=== PATIENT | female | born 1945 | race Hispanic/Latino ===

== ENCOUNTER 2018-01-15 00:08 | Inpatient (IN) | payer MEDICARE ==
[2018-01-15] VITALS (7 sets, daily range): BP systolic 99–143; BP diastolic 65–71
[~2018-01-15] VITALS: Ht 188 cm; Wt 97.5 kg
[2018-01-15] MEDS ORDERED: DIGOXIN INJ 0.25 MG/ML 2 ML AMP ONE (01:13)
[2018-01-15] MEDS ORDERED: POTASSIUM CHLO10 ME1 PO ×2 (01:20→03:09)
[2018-01-15] MEDS ORDERED: FUROSEMIDE40 MG PO ×2 (01:20→03:09)
[2018-01-15] MEDS ORDERED: OMEPRAZOLE20 MG PO ×2 (01:20→03:09)
[2018-01-15] MEDS ORDERED: LOSARTAN POTAS100 MG PO ×2 (01:20→03:09)
[2018-01-15] MEDS ORDERED: METOPROLOL SUCC25 MG PO ×2 (01:20→03:09)
[2018-01-15] MEDS ORDERED: ELIQUIS PO ×2 (01:20→03:09)
[2018-01-15] MEDS ORDERED: PRAVASTATIN SOD40 MG PO ×2 (01:20→03:09)
[2018-01-15] MEDS ORDERED: GLIPIZIDE-METF1 EAC2 PO ×2 (01:20→03:09)
[2018-01-15 01:30] LABS: BASOPHILS % 0.1 % (0.0-1.0); EOSINOPHILS # (AUTO) 0.1 (0.0-0.4); EOSINOPHILS % 1.5 % (0.0-6.0); HEMATOCRIT 33.9 % (34.2-44.1); LYMPHOCYTES # (AUTO) 1.7 (1.0-3.2); LYMPHOCYTES % 25.3 % (18.0-39.1); MEAN CORPUSCULAR HEMOGLOBIN 28.9 pg (28-32); MEAN CORPUSCULAR HGB CONC 32.4 g/dL (31-35); MONOCYTES # (AUTO) 0.8 (0.2-0.8); MONOCYTES % 11.2 % (4.4-11.3); NEUTROPHILS # (AUTO) 4.2 (2.1-6.9); NEUTROPHILS % 61.8 % (38.7-80.0); PLATELET COUNT 208 x10e3/uL (140-360); RED BLOOD COUNT 3.81 x10e6/uL (3.6-5.1); RED CELL DISTRIBUTION WIDTH 14.1 % (11.7-14.4)
[2018-01-15] MEDS ORDERED: DIGOXIN INJ 0.25 MG/ML 2 ML AMP IV ONE (01:30)
[2018-01-15 01:34] LABS: BILIRUBIN,URINE NEGATIVE (NEGATIVE); CLARITY,URINE SL CLOUDY (CLEAR); COLOR,URINE YELLOW (YELLOW); INR 1.33; KETONES,URINE NEGATIVE (NEGATIVE); LEUKOCYTE ESTERASE ,URINE 2+ (NEGATIVE); NITRITE,URINE NEGATIVE (NEGATIVE); PROTEIN,URINE DIPSTICK NEGATIVE (NEGATIVE); PROTHROMBIN TIME 17.6 seconds (11.9-14.5); RBC,URINE 0-5 /HPF (0-5); URINE UROBILINOGEN 0.2 mg/dL (0.2 - 1); WBC,URINE (MAN) >50 /HPF (0-5)
[2018-01-15 01:35] LABS: BACTERIA,URINE FEW /HPF; EPITHELIAL CELLS,URINE FEW /LPF; MUCUS,URINE FEW (RARE); PARTIAL THROMBOPLASTIN TIME 34.5 seconds (23.8-35.5); RENAL EPITHELIAL CELLS,URINE MODERATE
[2018-01-15 01:42] LABS: ALBUMIN/GLOBULIN RATIO 1.1 (0.8-2.0); ANION GAP 17.3 mmol/L (8-16); CALCIUM 9.3 mg/dL (8.4-10.2); CREATININE, SERUM 1.39 mg/dL (0.57-1.11); MAGNESIUM 1.6 MG/DL (1.3-2.1)
[2018-01-15 01:43] LABS: POTASSIUM 5.3 mmol/L (3.5-5.1)
[2018-01-15 01:49] LABS: CREATINE KINASE MB 0.8 ng/mL (0-5.0)
--- NOTE | 2018-01-15 02:05 | Diagnostic Imaging Report ---
EXAM: CHEST SINGLE (PORTABLE), AP 1 view INDICATION: Shortness of breath COMPARISON: None FINDINGS: LINES/TUBES: None LUNGS: No consolidations or edema. PLEURA: No effusions or pneumothorax. HEART AND MEDIASTINUM: Normal size and contour. BONES AND SOFT TISSUES: No acute findings. IMPRESSION: No acute thoracic abnormality. Signed by: Dr. Greta Hughes M.D. on 01/15/2018 2:02 AM
[2018-01-15] MEDS ORDERED: ASPIRIN 81 MG CHEW TAB PO ONE (03:15)
[2018-01-15] MEDS ORDERED: CEFTRIAXONE SOD 1 GM VIAL IV SCH (03:30)
[2018-01-15] MEDS ORDERED: SOD POLYSTYRENE SULFONATE SUSP 15 GM/60 ML BTL PO NR (06:45)
[2018-01-15] MEDS ORDERED: MELOXICAM7.5 MG PO (07:52)
[2018-01-15 09:17] LABS: CREATINE KINASE MB 0.8 ng/mL (0-5.0)
[2018-01-15] MEDS ORDERED: DEXTROSE 50% SYRINGE 50 ML IV PRN (12:00)
[2018-01-15] MEDS ORDERED: METOPROLOL SUCCINATE 25 MG TAB XL PO SCH (12:30)
[2018-01-15] MEDS: INSULIN LISPRO 100 UNIT/1 ML 3ML VIAL SQ SCH ×2 (13:37→16:08)
[2018-01-15] MEDS: METOPROLOL TARTRATE 25 MG TAB PO SCH ×2 (13:37→20:44)
[2018-01-15] MEDS ORDERED: NON-FORMULARY MEDICATION ([Eliquis] 5 MG) PO SCH (17:00)
[2018-01-15] MEDS ORDERED: APIXABAN 5 MG TABLET PO SCH (17:00)
--- NOTE | 2018-01-15 20:04 | Consultation ---
DATE OF CONSULTATION: January 15, 2018 CARDIOLOGY CONSULTATION REFERRING PHYSICIAN: Dr. Faraz Crystal. REASON FOR CONSULTATION: Atrial fibrillation. HISTORY OF PRESENT ILLNESS: Ms. Durbin is a 72-year-old woman with hypertension, diabetes mellitus, dyslipidemia, and coronary artery disease with remote stent placed approximately 7 to 8 years ago who presents with palpitations associated with lightheadedness and dyspnea on exertion which was sudden in onset approximately 4 to 5 days ago. She was noted to be in atrial fibrillation for which she was initiated on Eliquis and metoprolol by her outpatient primary physician. She was seen in the emergency department with atrial fibrillation and rapid ventricular response reported. At that time, her systolic blood pressure was in the high 80s, the reason why she was admitted. She has since converted to normal sinus rhythm and her symptoms have resolved. I have walked with her side through the halls at a regular pace and she reports resolution of her symptoms. She denies any chest pain or shortness of breath at this time. She denies any lightheadedness. REVIEW OF SYSTEMS: A 12-system review is negative except for as noted above. ALLERGIES: NO KNOWN DRUG ALLERGIES. PAST MEDICAL HISTORY: As per HPI. SOCIAL HISTORY: Denies smoking, alcohol, or drugs. FAMILY HISTORY: Noncontributory. PHYSICAL EXAMINATION VITAL SIGNS: Temperature 96.1, heart rate 74, respiratory rate 18, blood pressure 137/80, and O2 sat 91% on room air. GENERAL: No acute distress, alert. NECK: No JVD. CHEST: Clear to auscultation. CARDIOVASCULAR: Regular rate and rhythm. Normal S1 and S2. No S3, no S4. No murmurs or rubs. ABDOMEN: Soft, nontender, and nondistended. EXTREMITIES: No cyanosis, clubbing, or edema. CARDIOVASCULAR MEDICATIONS 1. Eliquis 5 mg every 12 hours. 2. Metoprolol tartrate 25 mg every 8 hours. 3. Aspirin 81 mg daily. STUDIES: White blood cells 6.7, hemoglobin 11, and platelets 208. INR 1.3. Serial cardiac enzymes negative. Sodium 140, potassium 5.3 status post Kayexalate, chloride 107, bicarbonate 21, BUN 35, creatinine 1.34, and glucose 233. CHEST X-RAY: No acute abnormality. TELEMETRY: Reveals currently normal sinus rhythm. ASSESSMENT 1. Paroxysmal atrial fibrillation, symptomatic. 2. Coronary artery disease with remote history of stents. 3. Hypertension. 4. Diabetes mellitus. 5. Chronic kidney disease. 6. Hyperkalemia, status post Kayexalate. RECOMMENDATIONS: Symptoms have resolved following conversion to normal sinus rhythm. We will initiate amiodarone 200 mg twice a day. Continue metoprolol. Continue Eliquis. Advised an outpatient echocardiogram and stress test. Patient has been provided contact information for followup as an outpatient. Job#: [id number] NICANOR
--- NOTE | 2018-01-15 20:31 | Discharge Summary ---
PRIMARY CARE DOCTOR: Dr. Maryana Mcbride FINAL DIAGNOSIS: Paroxysmal atrial fibrillation with rapid ventricular response, currently back in sinus. SECONDARY DIAGNOSES 1. Stage 3 chronic kidney disease due to diabetes. 2. Asymptomatic pyuria. 3. Mild hyperkalemia. BIN OPERATOR: Dr. Bryson, Cardiology. PROCEDURES/STUDIES PERFORMED: Chest x-ray which was negative. HISTORY: Per [facility] HOSPITAL COURSE: The patient received a dose of digoxin in the emergency room and also converted back to sinus. The patient was already on Eliquis. She will continue on that since she has been outside in sinus. The patient is asymptomatic now. I will increase her Toprol-XL to 25 mg b.i.d. for better heart rate control. Amiodarone 200 mg p.o. b.i.d. was added by Dr. Bryson. We will follow up with him in a week. She will continue her Eliquis. Patient has a mild hyperkalemia of 5.3. A small dose of Kayexalate was given. Patient was instructed to stop the potassium supplement. Patient has pyuria; however, patient is completely asymptomatic. She did get a dose of IV Rocephin. I do not feel need to continue this. There is a urine culture that is pending. CONDITION ON DISCHARGE: Stable. DISCHARGE MEDICATIONS: Please see medication reconciliation form. Job#: [id number] RTY cc:MARYANA MCBRIDE MD
[2018-01-15] MEDS ORDERED: PRAVASTATIN 20 MG TAB PO SCH (21:00)
[2018-01-16] MEDS ORDERED: NON-FORMULARY MEDICATION (Pravastatin Sodium 40 MG) PO SCH (09:00)
[2018-01-16] MEDS ORDERED: ASPIRIN 81 MG ENTERIC COATED PO SCH (09:00)
[2018-01-16] MEDS ORDERED: ASPIRIN 325 MG TAB PO SCH (09:00)
== END 2018-01-15 20:59 | disposition home or self-care (01) | DRG 309 ==
LOC: ER 00:08 → ERHOLD 03:06 → MED/SURG2 03:41
PROVIDERS: ADMIT Internal Medicine; ATTEND Internal Medicine
DX: I48.0 Paroxysmal atrial fibrillation (principal); N39.0 Urinary tract infection, site not specified; I25.10 Atherosclerotic heart disease of native coronary artery without angina pectoris; Z95.5 Presence of coronary angioplasty implant and graft; E11.22 Type 2 diabetes mellitus with diabetic chronic kidney disease; I12.9 Hypertensive chronic kidney disease with stage 1 through stage 4 chronic kidney disease, or unspecified chronic kidney disease; E87.5 Hyperkalemia; N18.3 Chronic kidney disease, stage 3 (moderate)
CPT/HCPCS: 36415; 71045; 80053; 81001; 82550; 82553; 82948; 83735; 84484; 85025; 85610; 85730; 87086; 93005; 99284; J0696; J1160

== ENCOUNTER 2023-11-12 16:51 | Inpatient (IN) | payer MEDICARE ==
[~2023-11-12] VITALS: Ht 157.5 cm; Wt 60.8 kg
[~2023-11-12 16:51] MED LIST: ELIQUIS PO; FUROSEMIDE40 MG PO; GLIPIZIDE-METF1 EAC2 PO; LOSARTAN POTAS100 MG PO; MELOXICAM7.5 MG PO; METOPROLOL SUCC25 MG PO; OMEPRAZOLE20 MG PO; POTASSIUM CHLO10 ME1 PO; PRAVASTATIN SOD40 MG PO
[2023-11-12] MEDS: SODIUM CHLORIDE 0.9% 1000ML 1,000 ML IV STA ×2 (17:55→18:08)
[2023-11-12] MEDS: DILTIAZEM HCL 5 MG/ML 5 ML VIAL IV STA (17:55)
[2023-11-12] MEDS: DIGOXIN INJ 0.25 MG/ML 2 ML AMP IV STA (18:02)
[2023-11-12] MEDS: METOPROLOL TARTRATE INJ 1 MG/ML VIAL IV STA (18:08)
[2023-11-12 18:12] LABS: BASOPHILS % 0.5 % (0.0-1.0); EOSINOPHILS # (AUTO) 0.1 (0.0-0.4); EOSINOPHILS % 0.8 % (0.0-6.0); HEMATOCRIT 37.7 % (34.2-44.1); HEMOGLOBIN 11.8 g/dL (12.0-16.0); LYMPHOCYTES # (AUTO) 1.3 (1.0-3.2); LYMPHOCYTES % 15.9 % (18.0-39.1); MEAN CORPUSCULAR HEMOGLOBIN 28.9 pg (28-32); MEAN CORPUSCULAR HGB CONC 31.3 g/dL (31-35); MEAN CORPUSCULAR VOLUME 92.4 fL (81-99); MONOCYTES # (AUTO) 0.9 (0.2-0.8); NEUTROPHILS # (AUTO) 5.7 (2.1-6.9); NEUTROPHILS % 71.4 % (38.7-80.0); PLATELET COUNT 213 x10e3/uL (140-360); RED BLOOD COUNT 4.08 x10e6/uL (3.6-5.1); RED CELL DISTRIBUTION WIDTH 17.3 % (11.7-14.4); WHITE BLOOD COUNT 7.93 x10e3/uL (4.8-10.8)
[2023-11-12 18:24] LABS: INR 1.64; PROTHROMBIN TIME 20.4 seconds (11.9-14.5)
[2023-11-12] MEDS ORDERED: ONDANSETRON HCL INJ 2MG/ML 2ML 2 MG/ML VIAL IV PRN (18:30)
[2023-11-12] MEDS ORDERED: Morphine 4mg INJECTION 4 MG/ML INJ IV PRN (18:30)
[2023-11-12 18:34] LABS: ALBUMIN 3.8 g/dL (3.5-5.0); ALBUMIN/GLOBULIN RATIO 0.9 (0.8-2.0); BILIRUBIN,TOTAL 0.9 mg/dL (0.2-1.2); CALCIUM 9.2 mg/dL (8.4-10.2); CREATININE, SERUM 1.69 mg/dL (0.57-1.11); TOTAL PROTEIN 7.9 g/dL (6.5-8.1)
[2023-11-12 18:39] LABS: TROPONIN I 0.018 ng/mL (0-0.300)
[2023-11-12] MEDS: SODIUM CHLORIDE 0.9% 1000ML 1,000 ML IV SCH (18:44)
[2023-11-12 18:51] VITALS: PULSE 100; RESP 14; O2SAT 100
[2023-11-12 20:00] VITALS: BP 101/78; PULSE 97; RESP 16; TEMP 97.5; O2SAT 100
[2023-11-12 20:15] VITALS: PULSE 101; RESP 17; TEMP 98
[2023-11-12] MEDS ORDERED: MELATONIN 5 MG TABLET PO PRN (20:45)
[2023-11-12] MEDS ORDERED: ONDANSETRON HCL 4 MG ORAL DISINTEGRATING TAB PO PRN (20:45)
[2023-11-12] MEDS ORDERED: FAMOTIDINE 20 MG TAB PO PRN (20:45)
[2023-11-12] MEDS ORDERED: DEXTROSE 50% SYRINGE 50 ML IV PRN (20:45)
[2023-11-12] MEDS: FUROSEMIDE INJ 10 MG/ML 4 ML VIAL IV ONE (22:12)
[2023-11-12] MEDS: INSULIN REGULAR, HUMAN 100 UNIT/1 ML SQ SCH (22:19)
[2023-11-13] VITALS (10 sets, daily range): BP systolic 94–126; BP diastolic 67–97; PULSE 70–149; RESP 16–21; TEMP 97.3–98.7; O2SAT 94–100
[2023-11-13] MEDS: ACETAMINOPHEN 325 MG TAB PO PRN (00:03)
[2023-11-13 02:39] LABS: TROPONIN I 0.029 ng/mL (0-0.300)
[2023-11-13 05:04] LABS: BASOPHILS % 0.5 % (0.0-1.0); EOSINOPHILS # (AUTO) 0.1 (0.0-0.4); EOSINOPHILS % 1.6 % (0.0-6.0); HEMOGLOBIN 10.5 g/dL (12.0-16.0); LYMPHOCYTES % 15.9 % (18.0-39.1); MEAN CORPUSCULAR HEMOGLOBIN 28.6 pg (28-32); MEAN CORPUSCULAR VOLUME 95.4 fL (81-99); MONOCYTES # (AUTO) 0.8 (0.2-0.8); MONOCYTES % 13.1 % (4.4-11.3); NEUTROPHILS # (AUTO) 4.4 (2.1-6.9); NEUTROPHILS % 68.6 % (38.7-80.0); PLATELET COUNT 197 x10e3/uL (140-360); RED BLOOD COUNT 3.67 x10e6/uL (3.6-5.1); RED CELL DISTRIBUTION WIDTH 17.4 % (11.7-14.4); WHITE BLOOD COUNT 6.42 x10e3/uL (4.8-10.8)
[2023-11-13 05:32] LABS: ALBUMIN 3.3 g/dL (3.5-5.0); ANION GAP 13.3 mmol/L (8-16); BILIRUBIN,TOTAL 0.8 mg/dL (0.2-1.2); CREATININE, SERUM 1.5 mg/dL (0.57-1.11); POTASSIUM 4.3 mmol/L (3.5-5.1); TOTAL PROTEIN 6.7 g/dL (6.5-8.1)
[2023-11-13 05:49] LABS: MAGNESIUM 1.6 MG/DL (1.3-2.1); PHOSPHORUS 3.8 MG/DL (2.3-4.7)
[2023-11-13 06:09] LABS: THYROID STIMULATING HORMONE 3.063 uIU/mL (0.350-4.940)
[2023-11-13] MEDS: FUROSEMIDE INJ 10 MG/ML 4 ML VIAL IV SCH (10:50)
[2023-11-13] MEDS: METOPROLOL TARTRATE 50 MG TAB PO SCH (10:52)
[2023-11-13] MEDS ORDERED: FEROSUL325 MG PO (11:13)
[2023-11-13] MEDS ORDERED: FARXIGA10 MG PO (11:13)
[2023-11-13] MEDS ORDERED: JANTOVEN5 MG PO (11:13)
[2023-11-13] MEDS ORDERED: DILTIAZEM HCL30 MG PO (11:13)
[2023-11-13] MEDS ORDERED: VITAMIN D2 PO (11:13)
[2023-11-13] MEDS ORDERED: ALENDRONATE SOD70 MG PO (11:13)
[2023-11-13 11:14] LABS: TROPONIN I 0.028 ng/mL (0-0.300)
[2023-11-13] MEDS: WARFARIN SOD 5 MG TAB PO ONE (11:31)
[2023-11-13] MEDS: DIGOXIN INJ 0.25 MG/ML 2 ML AMP IV ONE (11:31)
[2023-11-13] MEDS ORDERED: HEPARIN SOD/DEXTROSE 5% 25000 UNIT/250 ML BAG IV SCH (16:00)
[2023-11-13] MEDS ORDERED: HEPARIN 25,000 UNIT/D5W 250ML 250 ML IV SCH (16:30)
[2023-11-13] MEDS: MAGNESIUM OXIDE 400 MG TAB PO SCH (16:49)
[2023-11-13] MEDS ORDERED: FUROSEMIDE INJ 10 MG/ML 4 ML VIAL IV SCH (17:00)
[2023-11-13] MEDS ORDERED: DIGOXIN INJ 0.25 MG/ML 2 ML AMP IV ONE (18:00)
[2023-11-13] MEDS: PRAVASTATIN 20 MG TAB PO SCH (22:12)
[2023-11-14] VITALS (8 sets, daily range): BP systolic 99–125; BP diastolic 58–82; PULSE 101–145; RESP 16–20; TEMP 97.3–98.6; O2SAT 96–99
[2023-11-14 04:55] LABS: BASOPHILS % 0.6 % (0.0-1.0); EOSINOPHILS # (AUTO) 0.1 (0.0-0.4); EOSINOPHILS % 2.1 % (0.0-6.0); HEMATOCRIT 33.6 % (34.2-44.1); HEMOGLOBIN 10.6 g/dL (12.0-16.0); LYMPHOCYTES % 14.4 % (18.0-39.1); MEAN CORPUSCULAR HGB CONC 31.5 g/dL (31-35); MEAN CORPUSCULAR VOLUME 91.8 fL (81-99); MONOCYTES # (AUTO) 0.9 (0.2-0.8); MONOCYTES % 13.1 % (4.4-11.3); NEUTROPHILS # (AUTO) 4.7 (2.1-6.9); NEUTROPHILS % 69.7 % (38.7-80.0); PLATELET COUNT 190 x10e3/uL (140-360); RED BLOOD COUNT 3.66 x10e6/uL (3.6-5.1); RED CELL DISTRIBUTION WIDTH 16.9 % (11.7-14.4); WHITE BLOOD COUNT 6.73 x10e3/uL (4.8-10.8)
[2023-11-14 05:02] LABS: INR 2.01; PROTHROMBIN TIME 23.9 seconds (11.9-14.5)
[2023-11-14 05:32] LABS: ALBUMIN 3.2 g/dL (3.5-5.0); ANION GAP 16.4 mmol/L (8-16); BILIRUBIN,TOTAL 0.9 mg/dL (0.2-1.2); CALCIUM 8.7 mg/dL (8.4-10.2); CREATININE, SERUM 1.46 mg/dL (0.57-1.11); MAGNESIUM 1.4 MG/DL (1.3-2.1); TOTAL PROTEIN 6.5 g/dL (6.5-8.1)
[2023-11-14 05:49] LABS: POTASSIUM 3.4 mmol/L (3.5-5.1)
[2023-11-14] MEDS: FUROSEMIDE INJ 10 MG/ML 4 ML VIAL IV SCH (06:00)
[2023-11-14] MEDS: HEPARIN 25,000 UNIT/D5W 250ML 250 ML IV SCH (06:05)
[2023-11-14] MEDS: DIGOXIN INJ 0.25 MG/ML 2 ML AMP IV ONE (06:05)
[2023-11-14] MEDS: POTASSIUM CHLORIDE 20 MEQ TAB CR PO ONE (16:31)
[2023-11-14] MEDS: WARFARIN SOD 5 MG TAB PO SCH (18:09)
[2023-11-14] MEDS ORDERED: METOPROLOL TARTRATE INJ 1 MG/ML VIAL IV PRN (20:45)
[2023-11-14] MEDS: METOPROLOL TARTRATE 50 MG TAB PO SCH (20:59)
[2023-11-15] VITALS (8 sets, daily range): BP systolic 98–125; BP diastolic 56–80; PULSE 71–116; RESP 18–20; TEMP 97.8–98.5; O2SAT 96–100
[2023-11-15 05:22] LABS: INR 2.04; PROTHROMBIN TIME 24.2 seconds (11.9-14.5)
[2023-11-15 05:27] LABS: ANION GAP 15.7 mmol/L (8-16); CALCIUM 8.5 mg/dL (8.4-10.2); CREATININE, SERUM 1.37 mg/dL (0.57-1.11); POTASSIUM 3.7 mmol/L (3.5-5.1)
[2023-11-15] MEDS: FUROSEMIDE INJ 10 MG/ML 4 ML VIAL IV SCH ×2 (05:39→18:41)
[2023-11-15] MEDS: POTASSIUM CHLORIDE 20 MEQ TAB CR PO ONE (07:46)
[2023-11-15] MEDS: WARFARIN SOD 5 MG TAB ONE (07:47)
[2023-11-15] MEDS ORDERED: FUROSEMIDE INJ 10 MG/ML 4 ML VIAL IV SCH (15:45)
[2023-11-15] MEDS: MAGNESIUM HYDROXIDE 30 ML UDC PO PRN (20:45)
[2023-11-16] VITALS (8 sets, daily range): BP systolic 99–112; BP diastolic 50–71; PULSE 83–113; RESP 17–20; TEMP 97.8–98.8; O2SAT 97–100
[2023-11-16 05:10] LABS: INR 2.23; PROTHROMBIN TIME 26.1 seconds (11.9-14.5)
[2023-11-16 05:37] LABS: BASOPHILS % 0.6 % (0.0-1.0); EOSINOPHILS # (AUTO) 0.1 (0.0-0.4); EOSINOPHILS % 2.1 % (0.0-6.0); HEMATOCRIT 34.9 % (34.2-44.1); HEMOGLOBIN 10.9 g/dL (12.0-16.0); LYMPHOCYTES # (AUTO) 1.1 (1.0-3.2); MEAN CORPUSCULAR HEMOGLOBIN 28.7 pg (28-32); MEAN CORPUSCULAR HGB CONC 31.2 g/dL (31-35); MEAN CORPUSCULAR VOLUME 91.8 fL (81-99); NEUTROPHILS # (AUTO) 4.5 (2.1-6.9); PLATELET COUNT 203 x10e3/uL (140-360); RED CELL DISTRIBUTION WIDTH 16.5 % (11.7-14.4); WHITE BLOOD COUNT 6.74 x10e3/uL (4.8-10.8)
[2023-11-16 05:55] LABS: ALBUMIN 3.4 g/dL (3.5-5.0); ANION GAP 16.6 mmol/L (8-16); BILIRUBIN,TOTAL 0.8 mg/dL (0.2-1.2); CALCIUM 8.5 mg/dL (8.4-10.2); CREATININE, SERUM 1.38 mg/dL (0.57-1.11); POTASSIUM 3.6 mmol/L (3.5-5.1); TOTAL PROTEIN 6.9 g/dL (6.5-8.1)
[2023-11-16] MEDS: NON-FORMULARY MEDICATION (Dapagliflozin Propanediol (Farxiga) 1 TAB) PO SCH (09:00)
[2023-11-16] MEDS: DIGOXIN 0.125 MG TAB PO SCH (09:51)
[2023-11-16] MEDS: FUROSEMIDE INJ 10 MG/ML 4 ML VIAL IV SCH (09:56)
[2023-11-16 10:13] LABS: BILIRUBIN,URINE NEGATIVE (NEGATIVE); CLARITY,URINE CLEAR (CLEAR); COLOR,URINE YELLOW (YELLOW); GLUCOSE, URINE NEGATIVE (NEGATIVE); KETONES,URINE NEGATIVE (NEGATIVE); LEUKOCYTE ESTERASE ,URINE TRACE (NEGATIVE); NITRITE,URINE NEGATIVE (NEGATIVE); PH,URINE 7 (5 - 7); PROTEIN,URINE DIPSTICK NEGATIVE (NEGATIVE); URINE UROBILINOGEN 0.2 mg/dL (0.2 - 1)
[2023-11-16 10:23] LABS: BACTERIA,URINE MANY /HPF; EPITHELIAL CELLS,URINE RARE /LPF; RBC,URINE 0-5 /HPF (0-5); WBC,URINE (MAN) 0-5 /HPF (0-5)
[2023-11-16 11:03] LABS: TOTAL PROTEIN, URINE < 6.8 mg/dL (1-14)
[2023-11-16] MEDS: GLIPIZIDE 5 MG TAB PO SCH (12:22)
[2023-11-16] MEDS: METFORMIN HCL 500 MG TAB PO SCH (12:22)
[2023-11-17] VITALS: BP 102/71; PULSE 88; RESP 18; TEMP 97.8; O2SAT 100
[2023-11-17 08:00] VITALS: BP 102/71; PULSE 105; RESP 18; TEMP 97.8; O2SAT 100
[2023-11-17 08:16] LABS: BASOPHILS # (AUTO) 0.1 (0.0-0.1); BASOPHILS % 0.6 % (0.0-1.0); EOSINOPHILS # (AUTO) 0.1 (0.0-0.4); HEMATOCRIT 35.6 % (34.2-44.1); LYMPHOCYTES % 12.2 % (18.0-39.1); MEAN CORPUSCULAR HEMOGLOBIN 28.4 pg (28-32); MEAN CORPUSCULAR HGB CONC 30.9 g/dL (31-35); MEAN CORPUSCULAR VOLUME 91.8 fL (81-99); MONOCYTES % 13.1 % (4.4-11.3); NEUTROPHILS # (AUTO) 5.7 (2.1-6.9); PLATELET COUNT 176 x10e3/uL (140-360); RED BLOOD COUNT 3.88 x10e6/uL (3.6-5.1); RED CELL DISTRIBUTION WIDTH 16.4 % (11.7-14.4); WHITE BLOOD COUNT 7.86 x10e3/uL (4.8-10.8)
[2023-11-17 08:38] VITALS: BP 95/68; PULSE 99; RESP 18; TEMP 98.9; O2SAT 100
[2023-11-17 08:39] LABS: ALBUMIN 3.6 g/dL (3.5-5.0); ANION GAP 17.3 mmol/L (8-16); BILIRUBIN,TOTAL 0.8 mg/dL (0.2-1.2); CALCIUM 8.6 mg/dL (8.4-10.2); CREATININE, SERUM 1.49 mg/dL (0.57-1.11); INR 2.4; POTASSIUM 4.3 mmol/L (3.5-5.1); PROTHROMBIN TIME 27.7 seconds (11.9-14.5); TOTAL PROTEIN 7.2 g/dL (6.5-8.1)
[2023-11-17 08:51] LABS: MAGNESIUM 2.1 MG/DL (1.3-2.1); PHOSPHORUS 3.1 MG/DL (2.3-4.7)
[2023-11-17] MEDS ORDERED: DIGOXIN125 MCG PO (09:28)
[2023-11-17] MEDS ORDERED: LASIX40 MG PO (09:28)
[2023-11-17] MEDS ORDERED: METOPROLOL TART50 MG PO (09:28)
== END 2023-11-17 10:40 | disposition home or self-care (01) | DRG 308 ==
LOC: ER 17:04 → ERHOLD 18:23 → MED/SURG 20:30 → OBSVTOIN 11-13 15:17
PROVIDERS: ADMIT Family Medicine Adult Medicine; ATTEND Family Medicine Adult Medicine
PROC: 02HV33Z Insertion of Infusion Device into Superior Vena Cava, Percutaneous Approach (ICD-10-PCS; principal; 2023-11-14)
DX: I48.0 Paroxysmal atrial fibrillation (principal); I13.0 Hypertensive heart and chronic kidney disease with heart failure and stage 1 through stage 4 chronic kidney disease, or unspecified chronic kidney disease; I50.33 Acute on chronic diastolic (congestive) heart failure; D68.9 Coagulation defect, unspecified; J81.1 Chronic pulmonary edema; N17.9 Acute kidney failure, unspecified; I27.20 Pulmonary hypertension, unspecified; I05.0 Rheumatic mitral stenosis; E11.22 Type 2 diabetes mellitus with diabetic chronic kidney disease; N18.30 Chronic kidney disease, stage 3 unspecified; E78.5 Hyperlipidemia, unspecified; K21.9 Gastro-esophageal reflux disease without esophagitis; E11.65 Type 2 diabetes mellitus with hyperglycemia; E87.6 Hypokalemia; E66.9 Obesity, unspecified; Z68.30 Body mass index [BMI] 30.0-30.9, adult; Z79.01 Long term (current) use of anticoagulants; Z79.84 Long term (current) use of oral hypoglycemic drugs; Z90.49 Acquired absence of other specified parts of digestive tract; Z87.891 Personal history of nicotine dependence
CPT/HCPCS: 36415; 36568; 71045; 76770; 80048; 80053; 81001; 82550; 82570; 82948; 83690; 83735; 83880; 84100; 84156; 84443; 84484; 85025; 85610; 85730; 93005; 94799; 99284; G0378; J1160; J1940; J2270; J7030; U0002

== ENCOUNTER 2024-06-29 20:54 | Emergency (ER) | payer MEDICARE ==
[~2024-06-29] VITALS: Ht 149.9 cm; Wt 56.2 kg
[~2024-06-29 20:54] MED LIST changes: +ALENDRONATE SOD70 MG PO; +DIGOXIN125 MCG PO; +DILTIAZEM HCL30 MG PO; +FARXIGA10 MG PO; +FEROSUL325 MG PO; +JANTOVEN5 MG PO; +LASIX40 MG PO; +METOPROLOL TART50 MG PO; +VITAMIN D2 PO
[2024-06-29 23:28] VITALS: PULSE 85; RESP 16; TEMP 98
[2024-06-29 23:47] VITALS: BP 134/62; PULSE 85; RESP 16; TEMP 98; O2SAT 96
== END 2024-06-30 | disposition other institution (70) ==
LOC: FSED 21:14
DX: I63.9 Cerebral infarction, unspecified (principal); I10 Essential (primary) hypertension; E11.65 Type 2 diabetes mellitus with hyperglycemia; I50.9 Heart failure, unspecified; E78.5 Hyperlipidemia, unspecified; R94.31 Abnormal electrocardiogram [ECG] [EKG]; Z95.5 Presence of coronary angioplasty implant and graft; Z95.4 Presence of other heart-valve replacement
CPT/HCPCS: 36415; 80048; 80053; 82948; 85025; 93005; 99284